=== PATIENT | male | born 1995 | race African-American/Black ===

== ENCOUNTER 2025-07-04 18:50 | Emergency (ER) | payer SELFPAY ==
[~2025-07-04] VITALS: Ht 180.3 cm; Wt 75.0 kg
[2025-07-04] MEDS: MAGNESIUM/ALUMINUM HYDROXIDE/SIMETHICONE 30ML UDC PO ONE (19:54)
[2025-07-04] MEDS: DIPHENHYDRAMINE 50MG/ML VIAL IV ONE (19:54)
[2025-07-04] MEDS: METHYLPREDNISOLONE SOD SUCC 125MG/2ML (ACT-O-VIAL) IV ONE (19:55)
[2025-07-04] MEDS: FAMOTIDINE 20MG/2ML VIAL IV ONE (20:00)
[2025-07-04 20:07] VITALS: TEMP 36.5
[2025-07-04] MEDS: ALBUTEROL (0.5%) 2.5MG/0.5ML NEB HHN ONE (21:51)
[2025-07-04 21:52] VITALS: PULSE 77; RESP 16; O2SAT 99
[2025-07-04] MEDS: SODIUM CHLORIDE 0.9% 1,000 ML IV ONE (21:56)
[2025-07-04] MEDS ORDERED: DIPH25CA83 MT (23:10)
[2025-07-04] MEDS ORDERED: P50 MT (23:10)
[2025-07-04] MEDS ORDERED: EPIN0.3P3 IM (23:10)
[2025-07-04] MEDS ORDERED: FAMO-135 MT (23:10)
[2025-07-04 23:50] VITALS: BP 111/72; PULSE 54; RESP 18; O2SAT 100
== END 2025-07-05 00:30 | disposition home or self-care (01) ==
LOC: ER 18:50
DX: T78.1XXA Other adverse food reactions, not elsewhere classified, initial encounter (principal); Z79.899 Other long term (current) drug therapy; Z91.010 Allergy to peanuts; X58.XXXA Exposure to other specified factors, initial encounter
CPT/HCPCS: 94640; 98960; 96361; 96374; 96375; 99284; J1200; J1308; J2919; Z7610 ×2; J7030; 94070